=== PATIENT | male | born 1985 | race Caucasian/White ===

== ENCOUNTER 2020-12-31 11:08 | Emergency (ER) | payer OTHER ==
[~2020-12-31] VITALS: Ht 190.5 cm; Wt 113.4 kg
[~2020-12-31 11:08] MED LIST: NOHOMEMEDICATIONS
[2020-12-31] MEDS ORDERED: ALPRAZOLAM XR3 MG PO (11:23)
[2020-12-31] MEDS ORDERED: BUSPIRONE HCL5 MG PO (11:23)
[2020-12-31] MEDS ORDERED: CELEXA 10 MG TA10 M1 PO (11:23)
[2020-12-31 11:59] VITALS: BP 141/70
--- NOTE | 2021-01-01 09:30 | EKG ---
[place] [address] ELECTROCARDIOGRAM REPORT Name: HODAN MCCAIN Room: [facility]#: [id number] Admission: 12/31/20 Attend Phys: Discharge: 12/31/20 Date of : 87 Date of Service: 12/31/20 1113 Report #: [id number] THIS REPORT FOR: //name// [facility] ED Test Date: 2020-12-31 Test Time: 11:13:06 Pat Name: HODAN ALEXANDERRASS Department: Room: Gender: Credit Administration Manager: : [id number] Requested By: Alpesh Haprer Order Number: [id number] Reading MD: Jorge L Ramirez Measurements Intervals [place] Rate: 98 P: 56 IN: 179 QRS: 27 QRSD: 99 T: 28 QT: 333 QTc: 426 Interpretive Statements Sinus rhythm Probable left atrial enlargement Baseline wander in lead(s) II,III,aVL,aVF,V1,V4,V5,V6 No previous ECG available for comparison Electronically Signed On 01-01-2021 9:30:49 MANAGER INPATIENT by Jorge L Ramirez [email or web address] <ELECTRONICALLY SIGNED> By: Jorge L Ramirez MD, [facility] 01/01/21 0930 1113 1113 Jorge L Ramirez MD, [facility] /EPI
== END 2020-12-31 12:00 | disposition home or self-care (01) ==
LOC: M.ERS 11:08
DX: F41.9 Anxiety disorder, unspecified (principal); F32.9 Major depressive disorder, single episode, unspecified; Z79.899 Other long term (current) drug therapy; Z87.891 Personal history of nicotine dependence

== ENCOUNTER 2021-03-02 08:23 | Emergency (ER) | payer OTHER ==
[~2021-03-02] VITALS: Ht 190.5 cm; Wt 108.9 kg
[~2021-03-02 08:23] MED LIST changes: +ALPRAZOLAM XR3 MG PO; +BUSPIRONE HCL5 MG PO; +CELEXA 10 MG TA10 M1 PO
[2021-03-02 08:57] VITALS: BP 128/87
== END 2021-03-02 08:58 | disposition home or self-care (01) ==
LOC: M.ERS 08:23
DX: F41.9 Anxiety disorder, unspecified (principal); F32.9 Major depressive disorder, single episode, unspecified; Z79.899 Other long term (current) drug therapy